=== PATIENT | male | born 1980 | race Caucasian/White ===

== ENCOUNTER 2016-08-06 18:30 | Emergency (ER) | payer MEDICAID ==
[~2016-08-06] VITALS: Ht 182.9 cm; Wt 113.4 kg
[~2016-08-06 18:30] MED LIST: BACTRIM DS 8001 TA1 PO; HYDROCODONE/ACE1 TA5 PO; IBUPROFEN800 MG PO; KEFLEX500 M1 PO; MOTRIN600 MG PO; OMEPRAZOLE20 MG PO; PERCOCET 5/3251 EACH PO; TAMIFLU75 MG PO; TRAMADOL 50MG T50 M1 PO; VICODIN 7.5/501 EACH PO; VOLTAREN75 MG PO
[2016-08-06 18:55] LABS: URINE BLOOD NEGATIVE (NEG)
--- OUTSIDE RECORDS SUMMARY | 2016-08-06 18:55 | External Medical Summary Rpt ---
Author Author [facility] Organization [employer] Address Unknown Phone Unavailable Purpose Continuity of Care Document - through 2016
--- OUTSIDE RECORDS SUMMARY | 2016-08-06 18:55 | External Medical Summary Rpt ---
Demographics Preferred Language Turkmen Marital Status Unknown Yazidi Affiliation Unknown Race Unknown Ethnic Group Unknown Author Author , Organization [employer] Address Unknown Phone Unavailable Purpose Continuity of Care Document - through 2016 Immunization No patient found.
--- OUTSIDE RECORDS SUMMARY | 2016-08-06 18:55 | External Medical Summary Rpt ---
Author Author , Organization [employer] Address Unknown Phone Unavailable Purpose Continuity of Care Document - 07-17-2016 through 2016 Problems Code Diagnosis DOS Provider Status F17.210 NICOTINE 07-17-2016 DEPENDENCE, CIGARETTES, UNCOMPLICAT ED F41.9 ANXIETY 07-17-2016 DISORDER, UNSPECIFIED K21.9 GASTRO-ESOP 07-17-2016 HAGEAL REFLUX DISEASE WITHOUT ESOPHAGITIS M25.531 PAIN IN 07-17-2016 RIGHT WRIST S66.911A STRAIN OF 07-17-2016 UNSPECIFIED MUSCLE, FASCIA AND TENDON AT WRIST AND HAND LEVEL, RIGHT HAND, INITIAL ENCOUNTER Z79.899 OTHER LONG 07-17-2016 TERM (CURRENT) DRUG THERAPY
--- OUTSIDE RECORDS SUMMARY | 2016-08-06 18:55 | External Medical Summary Rpt ---
Demographics Preferred Language Surinamese Marital Status Unknown Faith Affiliation Unknown Race Unknown Ethnic Group Unknown Author Author , Organization [employer] Address Unknown Phone Unavailable Purpose Continuity of Care Document - through 2016 Immunization No patient found.
--- NOTE | 2016-08-06 19:12 | Emergency Room Report ---
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 N Clinical Suspician of Infection? N Mental Status: 1 - Regular (Normal Baseline) Sepsis Risk:Low Sepsis Risk Have you (or family members/close friends) recently traveled outside the [place]? N If Yes, where/when: Have you had exposure to infectious disease within the past month? N TB? Other? Specify: Comment The patient complains of LEFT flank pain going into his testicles off and on for one month. He has some lower abdominal pain. He says he has had some decreased urination for one month and some slight discomfort with urination since he arrived here in the emergency department, but not prior. No gross hematuria. No testicular pain at present. No fever. No vomiting. Prior history of many kidney stones. Denies any other types of back problems. No injury. He says the pain does not feel like it is in his spine. However, it does worsen with certain movements and positions. He also says it does not feel exactly like his previous kidney stones, which tend to radiate around to the same side of the abdomen. Also has a prior history of epididymitis, but this feels different. He says when he gets his LEFT flank pain his testicles hurt; they coincide together and then resolve together. No swelling of the scrotum. ALLERGIES Coded Allergies: No Known Allergies (09/03/15) Home Medications Reported Medications Omeprazole (Omeprazole 20MG) 20 MG PO BID History Medical History General CAD? No Angina: No VT: No Hypertension? No Hyperlipidemia? No CHF? No DVT? No PE? No COPD? No Asthma? No Anemia? No GERD? Yes Gastric ulcers? No GI Bleed? No Hernia? No Thyroid Problems? No Hypothyroidism? No CVA? No Seizures? No Diabetes? No Insulin Dependent: No Insulin Pump: No Home FSBS? No Renal Insuffiency? No End Stage Renal Disease? No UTI? No Stones? Yes BPH? No GB Disease: No Nephritic Syndrome? No Asplenia? No Hepatitis? No Sickle Cell Disease? No Arthritis? Yes Migraines? No Cataracts? No Glaucoma? No MRSA? No HIV? No TB? No Anxiety? No Depression? Yes Cancer? No More? No Immunization Hx DT/Tetanus 2009 Surgical Hx Previous Surgery?Y SCOPES OF L KNEE X2 LITHOTRYPSY-KIDNEYSTONES Social History Smoking Hx Smoker: Current Every Day Smoker Tobacco: Yes Type Cigarettes Packs/day < 1 Pack Alcohol Alcohol: No Review of Systems All Other Systems Reviewed and Negative Constitutional denies fever Gastrointestinal abdominal pain Genitourinary see HPI. Musculoskeletal back pain Physical Exam Vital Signs Vital Signs Date Time Temp Pulse Resp B/P Pulse O2 O2 Flow FiO2 Ox Delivery Rate 08/06 1938 88 18 136/83 93 08/06 1934 18 08/06 1933 18 08/06 1841 99.2 99 18 138/77 97 General Appearance normal appearance, WD/WN Eye Exam - bilateral eye normal exam, bilateral eye PERRL, bilateral eye EOMI Ear, Nose, Throat hearing grossly normal, normal ENT inspection Neck normal inspection, non-tender, supple, full range of motion Respiratory Status Yes: trachea midline, chest symmetrical, non tender chest. No: respiratory distress. Lung Sounds bilateral: normal breath sounds, lungs clear. 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 Yes Huseyin was queried for this patient? No Reason not queried - unable to access Results/Orders Laboratory Tests 08/06/16 1900: Sodium 141, Potassium 4.2, Chloride 105, Carbon Dioxide 31, BUN 11, Creatinine 1.1, Estimated Creat Clear 148, Estimated GFR (MDRD) 76, Glucose 108 H, Calcium 9.1, Total Bilirubin 0.4, AST 23, ALT 40, Alkaline Phosphatase 81, Total Protein 7.2, Albumin 4.2, Globulin 3.0, Albumin/Globulin Ratio 1.4, WBC 12.4 H, RBC 5.33, Hgb 15.8, Hct 46.6, MCV 87.3, RDW 12.5, Plt Count 246, MPV 6.5 L, Gran % 58.5, Gran # 7.3, Lymphocytes % 32.3, Monocytes % 4.9, Eosinophils % 3.8, Basophils % 0.6, Lymphocytes # 4.0, Monocytes # 0.6, Eosinophils # 0.5 H, Basophils # 0.1, PUBS MCHC 33.9, MCH 29.6 08/06/161847: Urine Color YELLOW, Urine Appearance SL CLOUDY, Urine pH 6.0, Ur Specific [place] 1.025, Urine Protein NEGATIVE, Urine Ketones TRACE H, Urine Blood NEGATIVE, Urine Nitrate NEGATIVE, Urine Bilirubin NEGATIVE, Urine Urobilinogen 1.0, Ur Leukocyte Esterase NEGATIVE, Urine RBC OCC, Urine WBC 3-5, Ur Squamous Epith Cells OCC, Urine Mucus 4+, Urine Glucose NEGATIVE Current Medication Orders Sig/Wilmer Start time Last Medication Dose Route Stop Time Status Admin Morphine Sulfate 0 .STK-MED ONE 08/06 1928 DC .ROUTE Ondansetron HCl 0 .STK-MED ONE 08/06 1928 DC .ROUTE Ketorolac 0 .STK-MED ONE 08/07 1927 DC Tromethamine .ROUTE Ketorolac 30 MG ONCE ONE 08/06 1914 DC 08/06 Tromethamine IV 08/06 Morphine Sulfate 4 MG ONCE ONE 08/06 1914 DC 08/06 IV 08/06 Ondansetron HCl 4 MG ONCE ONE 08/06 1914 DC 08/06 IV 08/06 Sodium Chloride 10 ML PRN PRN 08/06 1899 AC IV 08/07 1846 Orders Procedure Date/time Status DIET-NOTHING BY MOUTH 08/[address] ABD/PELVIS REQ 08/06 1908 Complete IV SALINE LOCK 08/06 1846 Active URINALYSIS/COMPLETE 08/06 1846 Complete CBC WITH AUTO DIFF 08/06 1846 Complete CHEM 12 PROFILE 08/06 1846 Complete XRAY/CT/US XRAY/CT/US CT abdomen, pelvis Comment CT scan interpreted by radiologist: No ureteral calculi. Diverticulosis without diverticulitis. Small bilateral inguinal hernias containing only fat. Departure Departure Disposition DC Home or Self Care(routine) Clinical Impression Primary Impression: Flank pain Secondary Impressions: Testicular pain Condition STABLE Referrals Lynn POST,Remy Wright Urologist, for testicular pain. Call for appointment. Joby POST,Howard Meier Call for appointment NADIR CAMPOS (Family) Patient Instructions DI for Flank Pain, DI for Testicular Pain Additional Instructions Additional instructions for BACK PAIN: See your physician as soon as possible for further evaluation. Return immediately if back pain becomes intolerable, or if fever, numbness or weakness of your legs, loss of control of your bowels or bladder. Prescriptions Current Visit Scripts HYDROCODONE/ACETAMINOPHEN ([place] 5-325 Tablet) 1 TAB PO Q6HP PRN pain #10 TAB ED Critical Care Critical Care No at 1958
[2016-08-06 19:15] LABS: HEMOGLOBIN 15.8 g/dL (14.1-18.0); LYMPH % 32.3 % (10-50)
[2016-08-06 19:26] LABS: URINE BILIRUBIN - DIPSTICK NEGATIVE (NEG)
[2016-08-06 19:28] LABS: URINE SQUAMOUS CELLS OCC #/hpf (OCC)
--- NOTE | 2016-08-06 19:49 | RADIOLOGY REPORT PS360 ---
CT ABD PELVIS W/O CONTRAST COMPARISON: CT scan abdomen 12/11/2008 HISTORY: Left flank pain TECHNIQUE: Multiple axial scans obtained from the hemidiaphragms the pelvic floor and were performed without IV or oral contrast. Sagittal and coronal reformats were evaluated as well. FINDINGS: The lower lung cruz are clear. The liver and spleen and pancreas appear normal. The stomach is moderately distended with ingested food particles. The gallbladder is markedly contracted but shows no obvious stones. The adrenal glands are normal. The kidneys are normal in size and there are no calculi and is no obstructive uropathy of either kidney. Small bowel appears normal. The appendix is normal caliber and partially air-filled and retrocecal in location. There is a large amount stool in the ascending and transverse colon. There are scattered diverticuli of the sigmoid colon with is no evidence of diverticulitis. The urinary bladder is partially decompressed, the prostate is normal. There are small bilateral inguinal hernias containing fat only. IMPRESSION: Large amount of right-sided stool otherwise no acute abdominal or pelvic pathology identified.
[2016-08-06] MEDS ORDERED: NORCO 325 MG-51 TAB PO (19:55)
[2016-08-06 20:22] VITALS: BP 117/75
== END 2016-08-06 20:23 | disposition home or self-care (01) ==
LOC: ER 18:30
PROVIDERS: Emergency Medicine
DX: R10.12 Left upper quadrant pain (principal); K21.9 Gastro-esophageal reflux disease without esophagitis; Z72.0 Tobacco use
CPT/HCPCS: J2405